=== PATIENT | female | born 1970 | race Caucasian/White ===

== ENCOUNTER 2018-04-29 11:03 | Emergency (ER) | payer SELFPAY ==
[2018-04-29] MEDS ORDERED: Metoclopramide HCl 10 MG/2 ML VIAL ONE (12:49)
[2018-04-29] MEDS ORDERED: diphenhydrAMINE 12.5 MG/5 ML UDCUP ONE (12:49)
[2018-04-29] MEDS ORDERED: Ketorolac Tromethamine 30 MG/ML VIAL ONE (12:49)
[2018-04-29] MEDS ORDERED: diphenhydrAMINE 50 MG/ML VIAL ONE (12:51)
--- NOTE | 2018-04-29 14:01 | CT ---
CT HEAD NONCONTRAST: History: Headache. FINDINGS: No comparison. There is no evidence of acute intracranial hemorrhage or infarct. Ventricles appear normal in size, s hape, and position. There is no mass effect or shift of midline structures. Visualized paranasal sinu ses remain well aerated. IMPRESSION: No acute intracranial abnormalities are demonstrated. POS: [facility]
== END 2018-04-29 13:51 | disposition home or self-care (01) ==
LOC: ERS 11:03
DX: R51 Headache (principal); F17.210 Nicotine dependence, cigarettes, uncomplicated
CPT/HCPCS: 70450; 96365; 96375; J1200; J1885; J2765

== ENCOUNTER 2024-05-13 10:44 | Outpatient (CLI) | payer OTHER | END 2024-05-13 10:45 | disposition home or self-care (01) | LOC: SCSRAD 10:44 | PROVIDERS: ATTEND Family Medicine | DX: M16.0 Bilateral primary osteoarthritis of hip (principal) | CPT/HCPCS: 36415; 80053; 83970; 84443; 84550; 85025 ==